=== PATIENT | male | born 1990 | race Caucasian/White ===

== ENCOUNTER 2019-09-19 22:13 | Emergency (ER) | payer OTHER ==
[~2019-09-19] VITALS: Ht 195.6 cm; Wt 104.3 kg
[2019-09-19 22:49] VITALS: BP 132/86
--- NOTE | 2019-09-19 22:51 | NUR ---
ER Nurse Note: Pt walked in c/o third digit on RT hand laceration. Pt stated he was at work cut his finger on beer bottle at 1845. Pt went to the first aid at work and was referred to ER. Pt stated active bleeding on inital cut but no longer bleeding. Lac is linear with no bone showing. Cap refill less tahn 3 secs, pt able to move digit with minimal discomfort. Finger irriaged by truck service technician. Will continue to montior.
--- NOTE | 2019-09-19 23:13 | Emergency Room Report ---
History of Present Illness General Chief Complaint: Laceration Source: Patient Present Illness HPI This is a 28-year-old male who is right-hand dominant. He works as a online marketing strategist. He presents with chief plane of a laceration to his right middle finger. He was pointed beer into a glass and it broke he sustained a laceration to the dorsum of his third middle finger. This occur few hours prior to arrival. No active bleeding. Minimal pain. Nothing made it better. Nothing made it worse. Denies any other complaint. Allergies: Coded Allergies: No Known Allergies (Unverified , 09/19/19) Patient History Past Medical History: see triage record, old chart reviewed Past Surgical History: none Pertinent Family History: none Social History: Reports: smoking Immunizations: UTD Nursing Documentation-PMH Past Medical History: No Stated History Review of Systems Eye: Denies: eye pain, blurred vision ENT: Denies: ear pain, nose congestion, throat swelling Respiratory: Denies: cough, shortness of breath Cardiovascular: Denies: chest pain, palpitations Gastrointestinal: Denies: abdominal pain, diarrhea, nausea, vomiting Musculoskeletal: Denies: back pain, joint pain Skin: Denies: rash Neurological: Denies: headache, numbness Endocrine: Denies: increased thirst, increased urine Hematologic/Lymphatic: Denies: easy bruising All Other Systems: negative except mentioned in HPI Physical Exam Vital Signs Date Time Temp Pulse Resp B/P (MAP) Pulse Ox O2 Delivery O2 Flow Rate FiO2 09/19/19 22:28 97.3 60 18 132/86 (101) 98 Room Air Vitals normal Sp02 EP Interpretation: reviewed, normal General Appearance: well appearing, no apparent distress, alert Head: normocephalic, atraumatic Eyes: bilateral eye PERRL, bilateral eye EOMI ENT: hearing grossly normal, normal pharynx Neck: full range of motion, supple, no meningismus Respiratory: chest non-tender, lungs clear, normal breath sounds Cardiovascular #1: regular rate, rhythm, no murmur Gastrointestinal: normal bowel sounds, non tender, no mass, no organomegaly, no bruit, non-distended Musculoskeletal: back normal, gait/station normal, normal range of motion, other - Right third finger: On the dorsal aspect of his proximal phalanx there is a 2 cm semilunar laceration. No foreign body. Full range of motion of the MCP and PIP joint. Sensation normal. Psychiatric: mood/affect normal Procedures Laceration/Wound Repair Laceration/Wound Repair : Consent: Verbal Wound Location: upper extremity Wound's Depth, Shape: linear, flap Wound Length (cm): 2 Wound Explored: clean Irrigated w/ Saline (ccs): 1000 Betadine Prep?: Yes Anesthesia: 1% Lidocaine Volume Anesthetic (ccs): 1 Wound Repaired With: sutures Suture Size/Type: 5:0, proline Number of Sutures: 4 Patient Tolerated: Well Complications: None Medical Decision Making Diagnostic Impression: Primary Impression: Laceration ER Course Patient presents with a finger laceration. Not deep. No tendon involvement or foreign body. Last Vital Signs Date Time Temp Pulse Resp B/P (MAP) Pulse Ox O2 Delivery O2 Flow Rate FiO2 09/19/19 22:49 97.3 60 18 132/86 98 Room Air Status: improved Disposition: HOME, SELF-CARE Condition: Stable Scripts Ibuprofen* (MOTRIN*) 600 Mg Tablet 600 MG ORAL THREE TIMES A DAY, #30 TAB 0 Refills Prov: Joel Worthington MD 09/19/19 Referrals: NOT CHOSEN IPA/,REFERRING (PCP) Patient Instructions: Laceration Care, Adult Additional Instructions: Keep wound clean. Apply antibiotic ointment. Follow-up with Workmen's Comp. doctor in 7 to 10 days for suture removal. Return if worse. Joel Worthington MD Sep 19, 2019 23:13
[2019-09-19] MEDS ORDERED: Neosporin Oint Ud Pkt TOPIC ONE ×2 (23:15)
[2019-09-19] MEDS ORDERED: IBUPROFEN600 MG ORAL (23:16)
[2019-09-19 23:26] VITALS: BP 132/86
--- NOTE | 2019-09-19 23:26 | NUR ---
ER Nurse Note: Laceration stiched by ERMD and applied persecribed ointment with bandage Pt seen, treated, medically cleared for discharge by ERMD. Discharge instuctions and prescriptions given with repeat verbalization by pt. Emphasized to follow up with primay care provider for stitch removal. All orders completed per ERMD orders. Pt a&ox4, VSS, no signs of distress. ID band removed. All questions answered per pt's questions. Pt left with all belongings, left with own transportation.
== END 2019-09-19 23:26 | disposition home or self-care (01) ==
LOC: EMR 23:00
DX: S61.212A Laceration without foreign body of right middle finger without damage to nail, initial encounter (principal); F17.200 Nicotine dependence, unspecified, uncomplicated; W25.XXXA Contact with sharp glass, initial encounter; Y93.89 Activity, other specified; Y92.254 Theater (live) as the place of occurrence of the external cause; Y99.0 Civilian activity done for income or pay
CPT/HCPCS: 99282